=== PATIENT | male | born 1935 | race Caucasian/White ===

== ENCOUNTER → 2016-09-15 | Outpatient (CLI) | payer MEDICARE, BC ==
[~2016-09-15] MED LIST: GLYBURIDE1 CRY; LOTREL 10 MG-201 CAP PO; MEVACOR20 MG PO
[2016-09-15 12:43] LABS: INTERNATIONAL NORM RATIO 2.2 (2.0-3.5); PROTHROMBIN TIME 24.1 SECONDS (9.0-12.4)
== END ==
LOC: LAB 11:06
PROVIDERS: Internal Medicine
DX: I48.91 Unspecified atrial fibrillation (principal)

== ENCOUNTER 2018-03-03 12:40 | Emergency (ER) | payer MEDICARE, BC ==
[~2018-03-03] VITALS: Ht 177.8 cm; Wt 80.7 kg
[2018-03-03 12:40] VITALS: BP 130/71
[2018-03-03] MEDS ORDERED: VICODIN 5-3001 EACH PO (15:15)
== END 2018-03-03 15:17 | disposition home or self-care (01) ==
LOC: ED 12:40
DX: S22.42XA Multiple fractures of ribs, left side, initial encounter for closed fracture (principal); M54.6 Pain in thoracic spine; I10 Essential (primary) hypertension; E11.9 Type 2 diabetes mellitus without complications; Z88.0 Allergy status to penicillin; Z79.899 Other long term (current) drug therapy; Z79.84 Long term (current) use of oral hypoglycemic drugs; W00.0XXA Fall on same level due to ice and snow, initial encounter; Y93.89 Activity, other specified; Y92.480 Sidewalk as the place of occurrence of the external cause; Y99.8 Other external cause status